=== PATIENT | female | born 1960 | race African-American/Black ===

== ENCOUNTER → 2020-10-10 | Outpatient (CLI) | payer OTHER ==
--- NOTE | 2020-10-10 14:39 | RAD ---
KNEE 3 VIEWS LEFT Clinical Indication: Reason: LEFT KNEE PAIN AFTER 2 FALLS / Spl. Instructions: / History: Comparison: None. Findings: There is no acute fracture or dislocation. There is mild medial compartment narrowing with small marek inal osteophytes. The patella is in anatomic position. There is no soft tissue abnormality. Question small joint effusion. Question faint chondrocalcinosis of the medial meniscus posteriorly. IMPRESSION: 1. No acute fracture. 2. Question small joint effusion. Electronically signed by: Tom Velasco MD (10/10/2020 2:36 PM) [id number]
== END ==
LOC: RAD 11:27
PROVIDERS: ATTEND Nurse Practitioner Family
DX: M25.562 Pain in left knee (principal)
CPT/HCPCS: 73562

== ENCOUNTER 2021-08-12 08:44 | Emergency (ER) | payer SELFPAY ==
[~2021-08-12] VITALS: Ht 167.6 cm; Wt 98.0 kg
[2021-08-12 09:00] VITALS: BP 154/83
[2021-08-12] MEDS ORDERED: DEXAMETHASONE 4 MG TABLET PO ONE (09:15)
[2021-08-12] MEDS ORDERED: POLY10DR RIGHTEYE (09:21)
--- NOTE | 2021-08-12 09:21 | PHYS DOC ---
Past History Past Medical History: Depression, Diabetes, GERD, High Cholesterol, Hypertension, Hypothyroid Past Surgical History: No Surgical History Alcohol Use: None Drug Use: None General Adult EDM: Chief Complaint: Right eye redness, nasal congestion, sore throat HPI: HPI: 60-year-old female presents with several day history of nasal congestion, sinus pressure, and sore throat. Patient reports awaking today with her right eye "matted shut ". Patient also reports significant redness to her right eye. Denies any fever or chills. Denies known exposure to COVID-19. Patient does report receiving COVID-19 Moderna vaccination x2. Denies use of contact lenses. Patient reports she does wear glasses. Review of Systems: Review of Systems: Constitutional: Denies fever or chills Eyes: Reports right eye redness and discharge HENT: Reports nasal congestion and sore throat Respiratory: Denies cough or shortness of breath Cardiovascular: Denies chest pain or palpitations GI: Denies abdominal pain, nausea, or vomiting : Denies dysuria or hematuria Musculoskeletal: Denies back pain or joint pain Integument: Denies rash or skin lesions Neurologic: Denies headache, focal weakness or sensory changes Complete systems were reviewed and found to be within normal limits, except as documented in this note. Physical Exam: PE: Constitutional: Well developed, well nourished, no acute distress, non-toxic ap pearance HENT: Normocephalic, atraumatic, pharynx clear without exudate, turbinates bilaterally enlarged and irritated, nasal congestion noted Eyes: PERRL, EOMI, conjunctiva injected with yellow crusting noted on eyelashes Neck: Normal range of motion, supple Lungs & Thorax: No respiratory distress, equal chest rise and fall Skin: Warm, dry, no erythema, no rash Extremities: No tenderness, ROM intact, no edema Neurologic: Alert and oriented X 3, no focal deficits noted Psychologic: Affect normal, judgment normal EKG: EKG: [] Radiology/Procedures: Radiology/Procedures: [] Heart Score: C/O Chest Pain: N/A Course & Med Decision Making: Course & Med Decision Making Patient presents with HPI and physical exam concerning for viral URI and right eye conjunctivitis. Patient does report she is diabetic and therefore a one- time dose of symptomatic dexamethasone provided. Prescription for antibiotic ophthalmic drops provided. Patient stable for discharge with outpatient follow-up with PCP. Discussed findings and plan with patient, who acknowledges understanding and agreement. Edinson Disclaimer: Edinson Disclaimer: This electronic medical record was generated, in whole or in part, using a voice recognition dictation system. Departure Departure: Impression: Primary Impression: Conjunctivitis Qualified Codes: H10.31 - Unspecified acute conjunctivitis, right eye Additional Impression: Upper respiratory infection Qualified Codes: J06.9 - Acute upper respiratory infection, unspecified Disposition: HOME / SELF CARE / HOMELESS Condition: STABLE Referrals: PCP,NO (PCP) Patient Instructions: Conjunctivitis (Viral and Bacterial), Upper Respiratory Infection, Adult, [id number] Scripts Polymyxin B Sulf/Trimethoprim (POLYTRIM EYE DROPS) 10 Ml Drops 2 DROP RIGHTEYE QID for Conjunctivitis for 5 Days, #10 ML Prov: TEO ORR DO 08/12/21 TEO ORR DO Aug 12, 2021 09:21
== END 2021-08-12 09:30 | disposition home or self-care (01) ==
LOC: ER 08:44
DX: H10.31 Unspecified acute conjunctivitis, right eye (principal); J06.9 Acute upper respiratory infection, unspecified; E11.9 Type 2 diabetes mellitus without complications; K21.9 Gastro-esophageal reflux disease without esophagitis; E78.00 Pure hypercholesterolemia, unspecified; I10 Essential (primary) hypertension; E03.9 Hypothyroidism, unspecified
CPT/HCPCS: 99283; J8540